=== PATIENT | female | born 1995 | race Caucasian/White ===

== ENCOUNTER 2018-04-11 17:46 | Emergency (ER) | payer SELFPAY ==
[2018-04-11 17:56] VITALS: BMI 25.4
--- NOTE | 2018-04-11 17:57 | PDOC ---
Rapid Medical Evaluation Medical Evaluation: 04/11/18 17:52 Pt c/o: lower abd pain since this am, + nausea, hx of ovarian cancer with ALE 1 year ago, no other complaints Pt on brief exam: lower abd tenderness, no cva tenderness Pt ordered for: cbc, comp, ua, abd u/s, u cx pt to proceed to the ED: Discharge Disposition - Diagnosis Lower abdominal pain - Referrals - Patient Instructions - Post Discharge Activity
[2018-04-11] MEDS ORDERED: SODIUM CHLORIDE 1,000 ML IV STA (18:53)
[2018-04-11 19:01] LABS: BASO % 0.5 % (0-2.0); EOS % 0.2 % (0-4.5); HEMATOCRIT 43.3 % (32.4-45.2); HEMOGLOBIN 14.2 GM/dL (10.7-15.3); MCH 29.8 pg (25.7-33.7); MCHC 32.8 g/dl (32.0-36.0); MEAN CELL VOLUME 90.7 fl (80-96); MEAN PLT VOLUME 7.5 fl (7.5-11.1); NEUT % 69.3 % (42.8-82.8); PLATELET COUNT 351 K/MM3 (134-434); RBC 4.78 M/mm3 (3.60-5.2); RDW 12.6 % (11.6-15.6); WHITE BLOOD COUNT 7.7 K/mm3 (4.0-10.0)
--- NOTE | 2018-04-11 19:21 | PDOC ---
History of Present Illness - General Chief Complaint: Pain, Acute Stated Complaint: PAIN, ACUTE Time Seen by Provider: 04/11/18 17:55 History Source: Patient Exam Limitations: Language Barrier - History of Present Illness Initial Comments: 04/11/18 19:15 Pt is a 23yo f with PMH of ovarian ca s/p chemotherapy and total hysterectomy, Celiac's, Guillan-[place] presents to ED with complaints of pelvic, back and abdominal pain that started yesterday. Pt said yesterday she vomited (nbnb) a few times but today she did not. She is admitting to nausea. Pt came from [facility] 4 months ago and does not have a pcp here. She denies fever, urinary symptoms, headache. Last BM was this AM which was diarrhea from celiac. PCP: none PMH: see hpi PSH: total hysterectomy (june 2017), lumpectomy Meds: none Allergies: nkda Past History - Past Medical History Allergies/Adverse Reactions: Allergies Allergy/AdvReac Type Severity Reaction Status Date / Time No Known Allergies Allergy Verified 04/11/18 17:53 Home Medications: Ambulatory Orders Ibuprofen 600 mg PO TID #15 tablet 04/11/18 Cancer: Yes (ovarian) COPD: No - Suicide/Smoking/Psychosocial Hx Smoking History: Never smoked Review of Systems - Review of Systems Constitutional: No: Chills, Fever, Weakness HEENTM: No: Eye Pain, Throat Pain Respiratory: No: Cough, Shortness of Breath, Hemoptysis Cardiac (ROS): Yes: Lightheadedness. No: Chest Pain, Palpitations, Syncope ABD/GI: Yes: Diarrhea, Nausea, Vomiting, Abdominal cramping (pelvic,diffuse). No: Constipated : Yes: Flank Pain. No: Dysuria, Hematuria, Pain, Urgency Musculoskeletal: Yes: Back Pain. No: Joint Pain, Neck Pain Integumentary: No: Rash Neurological: Yes: Headache. No: Numbness, Tingling, Tremors *Physical Exam - Vital Signs Last Vital Signs Temp Pulse Resp BP Pulse Ox 98.4 F 84 22 H 109/74 99 04/11/18 17:54 04/11/18 17:54 04/11/18 17:54 04/11/18 17:54 04/11/18 17:54 - Physical Exam Comments: 04/11/18 20:30 Pt sitting in bed, hunched over General Appearance: Yes: Nourished, Appropriately Dressed, Severe Distress HEENT: positive: EOMI, RICHARD, Hearing Grossly Normal. negative: Pale Conjunctivae, Scleral Icterus (R), Scleral Icterus (L), Nasal Congestion Neck: positive: Trachea midline, Supple. negative: Lymphadenopathy (R), Lymphadenopathy (L) Respiratory/Chest: positive: Lungs Clear, Normal Breath Sounds. negative: Crackles, Rales, Rhonchi, Stridor, Wheezing Cardiovascular: positive: Regular Rhythm, Regular Rate, S1, S2. negative: Edema , JVD, Murmur Vascular Pulses: Carotid (R): 2+, Carotid (L): 2+, Dorsalis-Pedis (R): 2+, Doralis-Pedis (L): 2+ Gastrointestinal/Abdominal: positive: Other (unable to evaluate, pt started screaming in pain when asked to lie supine) Musculoskeletal: positive: CVA Tenderness (R), CVA Tenderness (L), Vertebral Tenderness Extremity: positive: Normal Capillary Refill. negative: Swelling, Calf Tenderness Integumentary: positive: Normal Color, Dry, Warm Neurologic: positive: banquet cook II-XII NML intact, Fully Oriented, Alert, Normal Response, Motor Strength 5/5 ED Treatment Course - LABORATORY CBC & Chemistry Diagram: 04/11/18 18:47 04/11/18 18:47 - ADDITIONAL ORDERS Additional order review: 04/11/18 18:47 RBC 4.78 MCV 90.7 MCHC 32.8 RDW 12.6 MPV 7.5 Neutrophils % 69.3 Lymphocytes % 25.0 Monocytes % 5.0 Eosinophils % 0.2 Basophils % 0.5 Medical Decision Making - Medical Decision Making 04/11/18 22:33 Pt is a 23yo f with PMH of ovarian ca s/p chemotherapy and total hysterectomy, Celiac's, Guillan-[place] presents to ED with complaints of pelvic, back and abdominal pain that started yesterday Vitals: wnl, tachypnea PE: could not fully perform. Pt started screaming when asked to lie down for abdominal exam, could not do it. Pt said morphine helps with her pain. Given 1mg and sent to CT to r/o metastasis , intraabdominal pathology. Low suspicion for surgical abdomen due to normal vital signs. Pt given zofran for nausea and 1liter fluid. CT negative for pathology. Pt pain controlled with morphine. can be dc home. Pt agreed with rx of ibuprofen. given referral to Dr. Abrams. Pt agreed. *DC/Admit/Observation/Transfer Diagnosis at time of Disposition: Lower abdominal pain - Discharge Dispostion Disposition: HOME Condition at time of disposition: Improved - Prescriptions Prescriptions: Ibuprofen 600 mg PO TID #15 tablet - Referrals Referrals: Devyn Abrams MD [Staff Physician] - - Patient Instructions Printed Discharge Instructions: DI for Cancer Pain Syndromes Additional Instructions: You were seen here today for evaluation of pain. All of your tests were normal. I highly recommend you see a pain specialist. Dr. Abrams is associated with this hospital and you can see him. You can call his office at I have sent a prescription for Motrin (ibuprofen) to your pharmacy. You can take it up to 3 times a day as needed for pain. Take it with food. Come back to the emergency room if: pain gets worse, you notice blood in the stool, you are unable to have bowel movements, you develop fever or if any new concerning symptom develops. Thank you - Post Discharge Activity
[2018-04-11 19:22] LABS: ALBUMIN 4.3 g/dl (3.4-5.0); ALK PHOS 120 U/L (45-117); ANION GAP 6 MMOL/L (8-16); BILIRUBIN,TOTAL 0.4 mg/dL (0.2-1); BLOOD UREA NITROGEN 8 mg/dL (7-18); CHLORIDE 111 mmol/L (98-107); CO2 29 mmol/L (21-32); CREATININE 0.6 mg/dL (0.55-1.3); GLUCOSE,RANDOM 90 mg/dL (74-106); POTASSIUM 4.5 mmol/L (3.5-5.1); SGOT/AST 20 U/L (15-37); SGPT/ALT 22 U/L (13-61); SODIUM 146 mmol/L (136-145)
[2018-04-11] MEDS ORDERED: morphine CARPU-JECT 4 MG/1 ML DISP.SYRIN IVPUSH ONE (19:24)
[2018-04-11] MEDS ORDERED: MORPHINE SULFATE 2 MG/ML VIAL ONE (19:28)
--- NOTE | 2018-04-11 20:13 | PDOC ---
Attending Attestation - Resident Resident Name: Loida Bryson - ED Attending Attestation I have performed the following: I have examined & evaluated the patient, The case was reviewed & discussed with the resident, I agree w/resident's findings & plan, Exceptions are as noted - HPI HPI: 04/11/18 20:53 Ms Milena Hernandez is a 23yo f with a h/o ovarian ca s/p chemotherapy and total hysterectomy, Celiac's disease, Guillan-[place] She presents to the ER with a complaint of severe pelvic, back and abdominal pain that began yesterday. Emesis yesterday none today No fevers or chills (+) nausea now - Physicial Exam PE: 04/11/18 20:55 GENERAL: The patient is in no acute distress, pt appears to be in severe pain LUNGS: Breath sounds equal, clear to auscultation bilaterally. No wheezes, and no crackles. HEART:Regular rate and rhythm ABDOMEN: Soft, exquisitely tender to palpation, (+) guarding EXTREMITIES: Normal range of motion, no edema. NEUROLOGICAL: Cranial nerves II through XII grossly intact. Normal speech. No focal neurological deficits. SKIN: Warm, Dry, normal turgor, no rashes or lesions noted. - Medical Decision Making 04/11/18 20:58 23 yo F with significant past medical history, no records at this facility Pt presents with a complaint of severe abdominal pain Will do: Labs CT Pain meds (pt requests Morphine) 04/11/18 21:06 Laboratory Tests 04/11/18 04/11/18 18:47 18:47 WBC 7.7 Hgb 14.2 Hct 43.3 BUN [address] pending 04/11/18 21:46 CT negative for acute pathology D/c to home follow up with PMD
[2018-04-11 22:07] VITALS: BP 104/61; PULSE 73; TEMP 98.2
== END 2018-04-11 22:07 | disposition home or self-care (01) ==
LOC: JER 17:46
PROC: 3E0337Z Introduction of Electrolytic and Water Balance Substance into Peripheral Vein, Percutaneous Approach (ICD-10-PCS; principal; 2018-04-11)
PROC: 3E033NZ Introduction of Analgesics, Hypnotics, Sedatives into Peripheral Vein, Percutaneous Approach (ICD-10-PCS; 2018-04-11)
DX: R10.30 Lower abdominal pain, unspecified (principal); Z85.43 Personal history of malignant neoplasm of ovary; Z90.79 Acquired absence of other genital organ(s); K90.0 Celiac disease
CPT/HCPCS: 36415; 74176; 80053; 85025; 99284-25; J7030